=== PATIENT | female | born 1945 | race Hispanic/Latino ===

== ENCOUNTER 2018-02-13 22:30 | Emergency (ER) | payer MEDICARE, OTHER ==
[2018-02-13] MEDS ORDERED: NA CHLORIDE 0.9% 500 ML ONE (23:08)
[2018-02-13] MEDS ORDERED: LEVALBUTEROL 1.25 MG/3 ML NEB ONE (23:08)
[2018-02-14] MEDS ORDERED: AZITHROMYCIN 250 MG TAB ONE (01:59)
--- NOTE | 2018-02-14 02:05 | EDPHYS ---
Physician Documentation [facility] Name: Melinda Davis Age: 72 yrs Sex: Female : 1945 Arrival Date: 02/13/2018 Time: 22:31 Bed 19 Private MD: ED Physician Alfred Chou HPI: 02/14 02:00 This 72 yrs old Female presents to ER via Ambulatory with complaints of Cough, rn Sore Throat. 02:00 The patient or guardian reports cough. Onset: The symptoms/episode began/occurred rn yesterday. Severity of symptoms: At their worst the symptoms were mild, in the emergency department the symptoms are unchanged. It is unknown whether or not the patient has had similar symptoms in the past. Reports cough, sore throat, drainage, feels mild sob, hx of asthma, reports throat feels swollen when lays down, ok if standing or sitting, son with similar symptoms recently. . Historical: - Allergies: 02/13 22:50 No Known Allergies; lp1 - Home Meds: 22:50 Symbicort inhalation inhalation [Active]; Metoprolol Tartrate Oral [Active]; Metformin lp1 Oral [Active]; Glipizide Oral [Active]; 23:21 amlodipine oral [Active]; Hydralazine Oral [Active]; jd3 - PMHx: 22:50 Hypertension; Diabetes - NIDDM; Asthma; lp1 - PSHx: 22:50 Knee surgery; rotator cuff repair; ; lp1 - Immunization history:: Adult Immunizations up to date. - Social history:: Smoking status: Patient/guardian denies using tobacco. - Ebola Screening: : No symptoms or risks identified at this time. - Family history:: not pertinent. - Hospitalizations: : No recent hospitalization is reported. ROS: 02/14 02:00 Constitutional: Negative for fever, chills, and weight loss, Eyes: Negative for injury, rn pain, redness, and discharge, ENT: + sore throat and drainage Neck: Negative for injury, pain, and swelling, Cardiovascular: Negative for chest pain, palpitations, and edema, Respiratory: Negative for wheezing, and pleuritic chest pain, Abdomen/GI: Negative for abdominal pain, nausea, vomiting, diarrhea, and constipation, MS/Extremity: Negative for injury and deformity, Skin: Negative for injury, rash, and discoloration, Neuro: Negative for headache, weakness, numbness, tingling, and seizure. Exam: 02:00 Constitutional: This is a well developed, well nourished patient who is awake, alert, rn and in no acute distress. Head/Face: Normocephalic, atraumatic. Eyes: Pupils equal round and reactive to light, extra-ocular motions intact. Lids and lashes normal. Conjunctiva and sclera are non-icteric and not injected. Cornea within normal limits. Periorbital areas with no swelling, redness, or edema. ENT: mild pharyngeal erythema, no stridor, no exudate Neck: Trachea midline, no thyromegaly or masses palpated, and no cervical lymphadenopathy. Supple, full range of motion without nuchal rigidity, or vertebral point tenderness. No Meningismus. Cardiovascular: Regular rate and rhythm with a normal S1 and S2. No gallops, murmurs, or rubs. Normal PMI, no JVD. No pulse deficits. Respiratory: Lungs have equal breath sounds bilaterally, clear to auscultation and percussion. No rales, rhonchi or wheezes noted. No increased work of breathing, no retractions or nasal flaring. Abdomen/GI: Soft, non-tender, with normal bowel sounds. No distension or tympany. No guarding or rebound. No evidence of tenderness throughout. MS/ Extremity: Pulses equal, no cyanosis. Neurovascular intact. Full, normal range of motion. Equal circumference. Neuro: Awake and alert, GCS 15, oriented to person, place, time, and situation. Cranial nerves II-XII grossly intact. Motor strength 5/5 in all extremities. Sensory grossly intact. Cerebellar exam normal. Normal gait. Vital Signs: 02/13 22:48 BP 163 / 82; Pulse 112; Resp 20; Temp 99.5(O); Pulse Ox 97% on R/A; Weight 92.53 kg; lp1 Height 4 ft. 11 in. (149.86 cm); 23:34 BP 155 / 68; Pulse 99; Resp 18 S; Pulse Ox 96% on R/A; jd3 02/14 00:18 BP 133 / 58; Pulse 94; Resp 18 S; Pulse Ox 95% on R/A; jd3 01:03 BP 159 / 59; Pulse 94; Resp 18 S; Pulse Ox 100% on R/A; j 02: BP 149 / 63; Pulse 92; Resp 18 S; Pulse Ox 96% on R/A; d3 02/13 22:48 Body Mass Index 41.20 (92.53 kg, 149.86 cm) lp1 MDM: 02/13 22:41 Patient medically screened. rn 02/14 02:00 Differential Diagnosis: Bronchitis Influenza Upper Respiratory Infection Pharyngitis rn Viral Syndrome Pneumonia. Data reviewed: vital signs, nurses notes, lab test result(s), radiologic studies, plain films, and as a result, I will discharge patient. Counseling: I had a detailed discussion with the patient and/or guardian regarding: the historical points, exam findings, and any diagnostic results supporting the discharge/admit diagnosis, lab results, radiology results, the need for outpatient follow up, to return to the emergency department if symptoms worsen or persist or if there are any questions or concerns that arise at home. Response to treatment: the patient's symptoms have mildly improved after treatment, and as a result, I will discharge patient. Special discussion: I discussed with the patient/guardian in detail that at this point there is no indication for admission to the hospital. It is understood, however, that if the symptoms persist or worsen the patient needs to return immediately for re-evaluation. ED course: Pt improved, strep/flu neg, will dc home with z pack and pcp f/u. . 02/13 22:55 Order name: Flu; Complete Time: 01:28 rn 02/13 22:55 Order name: Strep; Complete Time: 01: rn 02/13 22:55 Order name: XRAY Chest Pa And Lat (2 Views) 02/13 23:38 Order name: Throat Culture [facility] 02/13 22:55 Order name: IV Start; Complete Time: 23:13 rn Administered Medications: 02/13 23:12 Drug: Xopenex 1.25 mg Route: Inhalation; [facility] 02/14 00:29 Follow up: Response: No adverse reaction [facility] 02/13 23:13 Drug: NS 0.9% 500 ml Route: IV; Rate: bolus; Site: right antecubital; j 02/14 00:29 Follow up: Response: No adverse reaction; IV Status: Completed infusion; IV Intake: jd3 500ml 01:09 Follow up: Response: No adverse reaction; IV Status: Completed infusion; IV Intake: jd3 500ml 02:00 Drug: Zithromax 500 mg Route: PO; jd3 02:15 Follow up: Response: No adverse reaction jd3 02:22 Drug: Tussionex Pennkinetic ER 5 ml Route: PO; jd3 02:22 Follow up: Response: Medication administered at discharge. jd3 Disposition: 02/14/18 02:04 Discharged to Home. Impression: Cough, Acute sinusitis. - Condition is Stable. - Discharge Instructions: Cough, Adult. - Prescriptions for Zithromax Z- Harpal 250 mg Oral Tablet - take 1 tablet by ORAL route as directed for 5 days Day 1 - take two (2) tablets one time. Day 2, 3, 4 , 5 take one (1) tablet once daily.; 6 tablet. - Medication Reconciliation Form, Thank You Letter, Antibiotic Education, Prescription Opioid Use form. - Follow up: Private Physician; When: As needed; Reason: Recheck today's complaints, Re-evaluation by your physician. - Problem is new. - Symptoms have improved. Signatures: Dispatcher [employer] EDMS Alfred Chou MD MD rn Pena, Laura, RN RN lp1 Keegan Alfaro RN RN jd3 Corrections: (The following items were deleted from the chart) 02:24 02:04 02/14/2018 02:04 Discharged to Home. Impression: Cough; Acute sinusitis. jd3 Condition is Stable. Forms are Medication Reconciliation Form, Thank You Letter, Antibiotic Education, Prescription Opioid Use. Follow up: Private Physician; When: As needed; Reason: Recheck today's complaints, Re-evaluation by your physician. Problem is new. Symptoms have improved. rn
--- NOTE | 2018-02-14 02:05 | ER ---
Nurse's Notes [facility] Name: Melinda Davis Age: 72 yrs Sex: Female : 1945 Arrival Date: 02/13/2018 Time: 22:31 Bed 19 Private MD: Diagnosis: Cough;Acute sinusitis Presentation: 02/13 22:47 Presenting complaint: Patient states: Cough, congestion, sore throat that began this lp1 morning, feeling worse now; Denies fever but felt chills today; states "when I lay down, I feel like I can't catch my breath. Transition of care: patient was not received from another setting of care. Onset of symptoms was February 13, 2018. Risk Assessment: Do you want to hurt yourself or someone else? Patient reports no desire to harm self or others. Initial Sepsis Screen: Does the patient meet any 2 criteria? No. Patient's initial sepsis screen is negative. Does the patient have a suspected source of infection? No. Patient's initial sepsis screen is negative. Care prior to arrival: None. 22:47 Method Of Arrival: Ambulatory lp1 22:47 Acuity: JOSE 3 lp1 Historical: - Allergies: 22:50 No Known Allergies; lp1 - Home Meds: 22:50 Symbicort inhalation inhalation [Active]; Metoprolol Tartrate Oral [Active]; Metformin lp1 Oral [Active]; Glipizide Oral [Active]; 23:21 amlodipine oral [Active]; Hydralazine Oral [Active]; jd3 - PMHx: 22:50 Hypertension; Diabetes - NIDDM; Asthma; lp1 - PSHx: 22:50 Knee surgery; rotator cuff repair; ; lp1 - Immunization history:: Adult Immunizations up to date. - Social history:: Smoking status: Patient/guardian denies using tobacco. - Ebola Screening: : No symptoms or risks identified at this time. - Family history:: not pertinent. - Hospitalizations: : No recent hospitalization is reported. Screenin:49 Abuse screen: Denies threats or abuse. Nutritional screening: No deficits noted. jd3 Tuberculosis screening: No symptoms or risk factors identified. Fall Risk Ambulatory Aid- None/Bed Rest/Nurse Assist (0 pts). Gait- Normal/Bed Rest/Wheelchair (0 pts) Mental Status- Oriented to own ability (0 pts). Total Silva Fall Scale indicates No Risk (0-24 pts). Assessment: 22:47 General: Appears uncomfortable, Behavior is calm, cooperative, appropriate for age. jd3 Pain: Complains of pain in head Quality of pain is described as aching, dull. Neuro: Level of Consciousness is awake, alert, obeys commands, Oriented to person, place, time, situation, Appropriate for age. Cardiovascular: Capillary refill < 3 seconds Patient's skin is warm and dry. Respiratory: Reports cough that is non-productive, persistent Airway is patent Respiratory effort is even, unlabored, Respiratory pattern is regular, symmetrical, Breath sounds are clear bilaterally. GI: No signs and/or symptoms were reported involving the gastrointestinal system. : No signs and/or symptoms were reported regarding the genitourinary system. EENT: Throat is reddened. Derm: Skin is intact, Skin is dry, Skin is normal, Skin temperature is warm. Musculoskeletal: Circulation, motion, and sensation intact. Range of motion: intact in all extremities. 23:34 Reassessment: Patient appears in no apparent distress at this time. Patient and/or jd3 family updated on plan of care and expected duration. Pain level reassessed. Patient is alert, oriented x 3, equal unlabored respirations, skin warm/dry/pink. 02/14 00:17 Reassessment: Patient appears in no apparent distress at this time. No changes from jd3 previously documented assessment. Patient and/or family updated on plan of care and expected duration. Pain level reassessed. Patient is alert, oriented x 3, equal unlabored respirations, skin warm/dry/pink. 01:03 Reassessment: Patient appears in no apparent distress at this time. Patient and/or jd3 family updated on plan of care and expected duration. Pain level reassessed. Patient is alert, oriented x 3, equal unlabored respirations, skin warm/dry/pink. 02:23 Reassessment: Patient appears in no apparent distress at this time. Patient and/or jd3 family updated on plan of care and expected duration. Pain level reassessed. Patient is alert, oriented x 3, equal unlabored respirations, skin warm/dry/pink. Vital Signs: 02/13 22:48 BP 163 / 82; Pulse 112; Resp 20; Temp 99.5(O); Pulse Ox 97% on R/A; Weight 92.53 kg; lp1 Height 4 ft. 11 in. (149.86 cm); 23:34 BP 155 / 68; Pulse 99; Resp 18 S; Pulse Ox 96% on R/A; jd3 02/14 00:18 BP 133 / 58; Pulse 94; Resp 18 S; Pulse Ox 95% on R/A; jd3 01:03 BP 159 / 59; Pulse 94; Resp 18 S; Pulse Ox 100% on R/A; jd3 02:23 BP 149 / 63; Pulse 92; Resp 18 S; Pulse Ox 96% on R/A; jd3 02/13 22:48 Body Mass Index 41.20 (92.53 kg, 149.86 cm) lp1 ED Course: 02/13 22:31 Patient arrived in ED. es 22:36 Keegan Alfaro, RN is Primary Nurse. jd3 22:41 Alfred Chou MD is Attending Physician. rn 22:48 Triage completed. lp1 22:48 Arm band placed on left wrist. lp1 22:49 Patient has correct armband on for positive identification. Bed in low position. Call jd3 light in reach. Side rails up X 1. Adult w/ patient. 23:13 Inserted saline lock: 20 gauge in right antecubital area, using aseptic technique. jd3 23:25 Patient moved to radiology via wheelchair. tm4 23:25 X-ray completed. Patient tolerated procedure well. tm4 23:25 Patient moved back from radiology. tm4 23:38 XRAY Chest Pa And Lat (2 Views) In Process Unspecified. EDMS 09 02:22 No provider procedures requiring assistance completed. IV discontinued, intact, jd3 bleeding controlled, No redness/swelling at site. Pressure dressing applied. Administered Medications: 02/13 23:12 Drug: Xopenex 1.25 mg Route: Inhalation; jd3 02/14 00:29 Follow up: Response: No adverse reaction jd3 02/13 23:13 Drug: NS 0.9% 500 ml Route: IV; Rate: bolus; Site: right antecubital; jd3 02/14 00:29 Follow up: Response: No adverse reaction; IV Status: Completed infusion; IV Intake: jd3 500ml 01:09 Follow up: Response: No adverse reaction; IV Status: Completed infusion; IV Intake: jd3 500ml 02:00 Drug: Zithromax 500 mg Route: PO; jd3 02:15 Follow up: Response: No adverse reaction jd3 02:22 Drug: Tussionex Pennkinetic ER 5 ml Route: PO; jd3 02:22 Follow up: Response: Medication administered at discharge. jd3 Intake: 00:29 IV: 500ml; Total: 500ml. jd3 01:09 IV: 500ml; Total: 1000ml. jd3 Outcome: 02:04 Discharge ordered by . rn 02:24 Discharged to home ambulatory, with family. jd3 02:24 Condition: stable 02:24 Discharge instructions given to patient, family, Instructed on discharge instructions, follow up and referral plans. medication usage, Demonstrated understanding of instructions, follow-up care, medications, Prescriptions given X 1. 02:24 Patient left the ED. jd3 Signatures: Dispatcher [employer] Justyna Aguilar Tracy tm4 Alfred Chou MD MD rn Pena, Laura, RN RN lp1 Keegan Alfaro RN RN jd3
[2018-02-14] MEDS ORDERED: HYDROCODONE/CHLORPHEN 5 ML/OSYR ONE (02:25)
[2018-02-14 02:28] VITALS: TEMP 99.5
[2018-02-14 02:33] VITALS: BP 149/63; O2SAT 96
--- NOTE | 2018-02-14 08:05 | RAD REPORT ---
EXAM DESCRIPTION: RAD - Chest Pa And Lat (2 Views) - 02/13/2018 11:38 pm CLINICAL HISTORY: Cough and congestion COMPARISON: October 2014 TECHNIQUE: PA and lateral views of the chest were obtained. FINDINGS: The lungs are clear. Lung markings are similar to comparison. Heart size is normal and ce ntral vasculature is within normal limits. No pleural effusion or pneumothorax seen. No acute bony finding noted. No aortic abnormality. No significant interval change. IMPRESSION: No acute cardiopulmonary process.
== END 2018-02-14 02:24 | disposition home or self-care (01) ==
LOC: ER 22:30
DX: J01.90 Acute sinusitis, unspecified (principal); I10 Essential (primary) hypertension; E11.9 Type 2 diabetes mellitus without complications; J45.909 Unspecified asthma, uncomplicated
CPT/HCPCS: 71046; 87070; 87081; 87804; 96360; 99284

== ENCOUNTER 2020-06-05 06:20 | Observation (INO) | payer MEDICARE, OTHER ==
[2020-06-03 16:21] LABS: Absolute Lymphocytes (CBC) 1.4 K/uL (0.7-4.9); Basophils % 1.1 % (0-1.3); Hematocrit 36.3 % (36.0-45.0); MPV 7.6 fL (7.6-11.3); RBC Red Blood Cell Count 4.05 M/uL (3.86-4.86)
[2020-06-03 16:29] LABS: ALT/SGPT 16 U/L (12-78); AST/SGOT 14 U/L (15-37); Albumin 3.3 g/dL (3.4-5.0); Alkaline Phosphatase 122 U/L (45-117); Amylase 93 U/L (25-115); BUN Blood Urea Nitrogen 24 mg/dL (7-18); Bicarbonate 29 mmol/L (21-32); Bilirubin Direct < 0.1 mg/dL (0-0.2); Bilirubin Total 0.4 mg/dL (0.2-1.0); Glucose Level 130 mg/dL (74-106); Lipase 194 U/L (73-393); Potassium 5.4 mmol/L (3.5-5.1); Protein, Total 8.3 g/dL (6.4-8.2); Sodium Level 139 mmol/L (136-145)
--- NOTE | 2020-06-03 16:34 | RAD REPORT ---
EXAM DESCRIPTION: RAD - Chest Pa And Lat (2 Views) - 06/03/2020 4:28 pm CLINICAL HISTORY: preop Chest pain. COMPARISON: Chest Pa And Lat (2 Views) dated 02/13/2018; CHEST PA AND LAT 2 VIEW dated 11/02/2014; [facility]EL[facility] ST PA AND LAT 2 VIEW dated 06/24/2014; CHEST PA AND LAT 2 VIEW dated 10/11/2013 FINDINGS: The lungs are clear. The heart is upper limit normal in size. No displaced fractures. IMPRESSION: No acute or concerning finding suspected.
--- NOTE | 2020-06-05 06:12 | EKG ---
Test Date: 2020-06-03 Test Time: 15:23:56 Motor Route Carrier: OLYA MEASUREMENT RESULTS: Intervals: Rate: 69 WY: 148 QRSD: 90 QT: 390 QTc: 417 [place]: P: 55 WY: 148 QRS: 74 T: 78 INTERPRETIVE STATEMENTS: Sinus rhythm with premature atrial complexes Otherwise normal ECG Compared to ECG 11/02/2014 15:26:18 Atrial premature complex(es) now present Electronically Signed On 06-05-20 06:09:18 [employer] by Kimani Senior
--- OUTSIDE RECORDS SUMMARY | 2020-06-05 06:21 | XMS REPORT | Continuity of Care Document ---
:1945 Author Organization [facility] t Address [address] [place] [address] Care Team Providers Name Role Phone Unavailable Unavailable Unavailable Problems This patient has no known problems. Allergies, Adverse Reactions, Alerts This patient has no known allergies or adverse reactions. Medications Ordered Filled Start Stop Current Ordering Indication Dosage Frequency Signature Comments Components Source Medication Medication Date Date Medication? Clinician (SIG) Name Name Alendronate Alendronate Yes [facility] not [facility] Sodium Sodium [facility] defined [facility] Losartan Losartan Yes [facility] Potassium Potassium [facility] GlipiZIDE GlipiZIDE Yes Ross not [facility] Norris defined [facility] Atorvastati Atorvastati Yes Ross not [facility] n Calcium n Calcium [facility] defined [facility] Metformin Metformin Yes Ross not [facility] HCl HCl [facility] defined [facility] Metoprolol Metoprolol Yes [facility] not [facility] Tartrate Tartrate [facility] defined [facility] Procedures This patient has no known procedures. Encounters Start End Encounter Admission Attending Care Care Encounter Source Date/Time Date/Time Type Type Clinicians Facility Department ID 2020-02-27 2020-02-27 Outpatient [facility] [id number] [facility] 2019-01-27 2019-01-27 [facility] [id number] [facility] 08[facility] Results This patient has no known results.
[2020-06-05] MEDS: NA CHLORIDE 0.9% 1,000 ML ONE ×5 (06:50→08:38)
[2020-06-05] MEDS ORDERED: CEFOXITIN/SWI 1gm 1 GM/10 ML SYR ONE ×2 (06:56→12:33)
[2020-06-05] MEDS ORDERED: MIDAZOLAM HCL 2 MG/2 ML INJ ONE (07:17)
[2020-06-05] MEDS ORDERED: propofoL 200 MG/20 ML VIAL IV ONE (07:17)
[2020-06-05] MEDS ORDERED: dexAMETHasone 10 MG/ML VIAL ONE (07:17)
[2020-06-05] MEDS ORDERED: FENTANYL CITR 100 MCG/2 ML ONE (07:17)
[2020-06-05] MEDS ORDERED: ROCURONIUM 50 MG/5 ML VIAL IV ONE (07:18)
[2020-06-05] MEDS ORDERED: ONDANSETRON 4 MG/2 ML VIAL ONE (07:18)
[2020-06-05] MEDS ORDERED: LIDOCAINE 1% MPF 2 ML AMPULE ONE (07:18)
[2020-06-05] MEDS ORDERED: EPHEDRINE SULF 50 MG/ML VIAL ONE (08:15)
[2020-06-05] MEDS ORDERED: GLYCOPYRROLATE 0.2 MG/ML SYR ONE (08:20)
[2020-06-05] MEDS ORDERED: SODIUM CHLORIDE 0.9% 10ML INJ IV PRN (08:26)
[2020-06-05] MEDS ORDERED: ATROPINE SULF 1 MG/10 ML SYR IV ONE (08:26)
[2020-06-05] MEDS ORDERED: ONDANSETRON 4 MG/2 ML VIAL IV PRN (08:26)
--- NOTE | 2020-06-05 08:26 | P.BOP ---
Preoperative diagnosis: biliary dyskinesia, RUQ abd pain Postoperative diagnosis: same, cholecystitis Primary procedure: Laparoscopic cholecystectomy Estimated blood loss: <10cc Specimen: gb Findings: see dictation Anesthesia: General Complications: None Transferred to: Recovery Room Condition: Good
[2020-06-05] MEDS ORDERED: KETOROLAC 30 MG/ML INJ ONE (08:33)
[2020-06-05] MEDS: NA CHLORIDE 0.9% 1,000 ML IV SCH ×2 (09:00→23:16)
[2020-06-05] MEDS: PANTOPRAZOLE 40 MG INJ IVP SCH (09:00)
[2020-06-05] MEDS ORDERED: HYDROCODONE/APAP 5/325 MG TAB PO PRN (09:18)
[2020-06-05] MEDS ORDERED: MORPHINE 2 MG/ML SYR IV PRN (09:19)
--- NOTE | 2020-06-05 10:15 | OP ---
Date of Procedure: 06/05/2020 Surgeon: Abimael Sharma MD Postoperative Diagnoses: Biliary dyskinesia, right upper quadrant abdominal pain. Postoperative Diagnoses: Biliary dyskinesia, right upper quadrant abdominal pain, acute cholecystiti s. Procedure: Laparoscopic cholecystectomy. Specimen: Gallbladder. Anesthesia: General plus local. Findings: Inflammation of the gallbladder plus above. Also during the procedure as per Anesthesia, they believe the patient has a vasovagal with a short episode of hypotension. Anesthesia: General plus local. Indications: This is a case of a 74-year-old patient, who comes to us with above diagnosis. Patient wants surgery to be done. She understands the benefits, alternatives, and risks of laparoscopic, po ssible open cholecystectomy, which include, but not limited to infection, bleeding, damage to adjacen t structures, anesthesia complication, recurrence, UT, and . She also understands this may not relieve the symptoms. She might need more than 1 surgical intervention. She understands the situati on of the country with COVID cases, but also she feels that she has been waiting a long enough and sh e want to improve and get better, continue with her life, and go back to normal duties and have jose miguel r quality of life because this pain holds her back. surgery. She has been trying to even control her diet, but has not improved yet. Description Of Procedure: Patient was brought to the operating room, placed in supine position. Ane sthesia was done without complication. Abdominal area was prepped and draped in a sterile fashion. Marcaine 0.5% was injected for local anesthetic followed by sharp incision of the skin in the infraum bilical region. Incision was carried down to fascia, which was opened under direct vision. Peritone um was encountered, opened under direct vision. Vicryl #1 placed inside the fascia. Nicanor trocar w as carefully introduced. No bleeding was obtained. I placed 3 more trocars 5 mm each one of them in the epigastric right upper quadrant area under direct visualization. When we insufflated the area, the Anesthesia felt that the heart rate dropped and they asked me to relive the abdomen and it improv ed immediately. They believed vasovagal, everything else looked intact. The gave me the green light to continue and the procedure was done. I placed a grasper in the fundus of the gallbladder and ano ther grasper in the infundibulum retracting the gallbladder in the inferolateral fashion exposing the triangle of Calot, obtaining critical view of safety. Cystic duct and cystic artery were clearly is olated freed circumferentially and a connection between those and the gallbladder was clearly identif ied. I proceeded to ligate those by using at least 3 clips proximal, 1 clip distal, and ligation in the middle. Same was done with the cystic artery. A small branch of the cystic artery was also liga carlos using the same technique. Hepatic arteries and common bile duct were protected at all times. Th e gallbladder was removed from liver using Bovie cauterizer and removed from abdominal cavity using E ndoCatch through the umbilical incision. Heart rate continued steady and normal. At that moment, th en I proceeded to check the area once again after irrigation and suction. There were intact marcelino and no bleeding. No bile leak. No bleeding. At that moment, I proceeded to remove the trocars unde r direct vision. Deflated the pneumoperitoneum. Closed the fascia with #1 Vicryl. Irrigated the hernandez bcutaneous tissue, closed that with 3-0 chromic and the skin with 3-0 chromic in a subcuticular fashi on. Sponge count and instrument counts correct. Vital signs are stable. The patient was sent to re covery in stable condition. Due to that small episode of bradycardia, I believe it is safer to keep the patient overnight on telemetry. Anesthesia will do the workup for the bradycardia, although they believe it is just a decrease in heart rate. MONICA/NOLVIA Voice ID: [id number] Report ID: [id number]
[2020-06-05] MEDS: CEFOXITIN/SWI 1gm 1 GM/10 ML SYR IV SCH ×3 (12:00→23:16)
[2020-06-05 13:22] VITALS: BMI 39.7
[2020-06-05] MEDS ORDERED: D50W 25 GM/50 ML SYRINGE IV PRN (14:36)
[2020-06-05] MEDS ORDERED: GLUCAGON 1 MG/VIAL IM PRN (14:36)
--- NOTE | 2020-06-05 14:44 | P.CNS ---
Date of Consult: 06/05/20 Reason for Consult: Medical management Requesting Physician: Abimael Sharma Chief Complaint: Bradycardia History of Present Illness: 74-year-old woman with a history of hypertension and diabetes had and elective laparoscopic cholecystectomy for biliary dyskinesia. Patient is reported to have developed bradycardia in the immediate postop period. She is therefore being observed overnight with cardiac monitoring. Hospitalist service is consulted to assist with management of medical problems which include hypertension and diabetes. Patient at the moment denies any complain. Her heart rate has been stable since transfer from the recovery room. Allergies No Known Drug Allergies Allergy (Verified 06/03/20 14:52) Unknown Home Medications: Aspirin [Aspirin EC] 81 mg PO DAILY 12/25/14 Atorvastatin Calcium 40 mg PO BEDTIME 06/03/20 Carvedilol [Coreg] 0.5 tab PO BID 06/03/20 Glipizide [Glipizide ER] 5 mg PO BID 06/03/20 Losartan Potassium 100 mg PO DAILY 06/03/20 Metformin ER [Glucophage ER] 500 mg PO BID 06/03/20 Spironolactone 25 mg PO DAILY 06/03/20 - Past Medical/Surgical History Diabetic: Yes -: Right Cataract -: Hypertension -: DM -: Bilateral knee replacement -: rt rotator cuff repair 1999 -: carpal tunnel repair both wrists 1991 -: c section 1979 -: heel spurs 20 yrs ago - Family History Brother Medical History:  Notes: mother was very healthy, did not know fathers health status-left when she was 3 yrs. brother at old age over 70-was very healthy - Social History Smoking Status: Never smoker Alcohol use: No CD- Drugs: No Caffeine use: Yes Place of Residence: Home Review of Systems 10-point ROS is otherwise unremarkable Physical Examination Temp Pulse Resp BP Pulse Ox 96.3 F L 85 16 135/58 L 06/05/20 12:10 06/05/20 12:10 06/05/20 12:10 06/05/20 12:30 General: Alert, In no apparent distress, Oriented x3 HEENT: Atraumatic, Normocephalic, PERRLA, Mucous membr. moist/pink, EOMI, Sclerae nonicteric Neck: Supple, JVD not distended Respiratory: Clear to auscultation bilaterally, Normal air movement Cardiovascular: No edema, Regular rate/rhythm, Normal S1 S2, No murmurs Capillary refill: <2 Seconds Gastrointestinal: Normal bowel sounds, Soft and benign, Non-distended, No tenderness Musculoskeletal: No swelling, No tenderness Integumentary: No rashes, No erythema Neurological: Normal speech, Normal strength at 5/5 x4 extr, Cranial nerves 3-12 intact - Problems (1) Bradycardia Current Visit: Yes Status: Acute (2) Diabetes mellitus Onset Date: 12/26/14 Current Visit: No Status: Acute (3) High blood pressure Onset Date: 12/26/14 Current Visit: No Status: Acute Conclusions/Impression: Resume losartan. Hold Coreg due to bradycardia. Monitor blood pressure. Mild insulin sliding scale. Hold metformin and glipizide. Patient started on clear liquid diet.
[2020-06-05] MEDS: INSULIN -REGULAR HUMAN 50 UNIT/0.5 ML ML SQ SCH ×2 (18:19→21:29)
[2020-06-05] MEDS ORDERED: ATORVASTATIN 40 MG TAB PO SCH (21:00)
[2020-06-06 04:32] LABS: Absolute Lymphocytes (CBC) 0.7 K/uL (0.7-4.9); Basophils % 0.1 % (0-1.3); Hematocrit 33.8 % (36.0-45.0); Lymphocytes % 5.3 % (15.3-44.8); MPV 7.2 fL (7.6-11.3); RBC Red Blood Cell Count 3.79 M/uL (3.86-4.86)
[2020-06-06 05:17] LABS: Potassium 5.8 mmol/L (3.5-5.1)
[2020-06-06 05:35] LABS: Blood Morphology Comment NOT SEEN (NOT SEEN); Platelet Estimate ADEQ
[2020-06-06] MEDS ORDERED: ALBUTEROL 2.5 MG/3 ML NEB SOL NEB ONE (05:35)
[2020-06-06] MEDS ORDERED: D50W 25 GM/50 ML SYRINGE IV ONE (05:35)
[2020-06-06] MEDS ORDERED: INSULIN -REGULAR HUMAN 50 UNIT/0.5 ML ML IV ONE (05:36)
[2020-06-06] MEDS ORDERED: D50W 50 ML IV ONE (06:16)
[2020-06-06] MEDS: INSULIN -REGULAR HUMAN 50 UNIT/0.5 ML ML SQ SCH ×3 (07:30→16:30)
[2020-06-06] MEDS: PANTOPRAZOLE 40 MG INJ IVP SCH (09:00)
[2020-06-06] MEDS ORDERED: SPIRONOLACTONE 25 MG TABLET PO SCH (09:00)
[2020-06-06] MEDS ORDERED: LOSARTAN POTASSIUM 50 MG TABLET PO SCH (09:00)
[2020-06-06 09:22] VITALS: O2SAT 96
[2020-06-06] MEDS ORDERED: SOD POLYSTYREN SUL 15 GM/60 ML UCUP PO ONE (11:30)
[2020-06-06 14:53] VITALS: BP 153/66; TEMP 97
--- NOTE | 2020-06-06 16:21 | P.PN ---
Subjective Date of Service: 06/06/20 Chief Complaint: Bradycardia Patient has no complain today. Noted to have hyperkalemia. She has been on spironolactone and losartan. Indication for the spironolactone is not clear. Physical Examination - Vital Signs Temperature: 97 F Blood Pressure: 153/66 Pulse: 64 Respirations: 20 Pulse Ox (%): 97 - Physical Exam General: Alert, In no apparent distress, Oriented x3 Neck: Supple Respiratory: Clear to auscultation bilaterally, Normal air movement Cardiovascular: No edema, Regular rate/rhythm, Normal S1 S2 Gastrointestinal: Normal bowel sounds, Soft and benign, Non-distended Musculoskeletal: No swelling, No tenderness Integumentary: No rashes Neurological: Normal speech, Normal strength at 5/5 x4 extr - Studies Laboratory Data (last 24 hrs) 06/06/20 09:51: Potassium 5.4 H 06/06/20 03:58: Sodium 139, Potassium 5.8 H*, BUN 24 H, Creatinine 1.24, Glucose 167 H 06/06/20 03:58: WBC 13.8 H D, Hgb 11.0 L, Hct 33.8 L, Plt Count 282 Assessment And Plan - Current Problems (Diagnosis) (1) Bradycardia Current Visit: Yes Status: Acute (2) Diabetes mellitus Onset Date: 12/26/14 Current Visit: No Status: Acute (3) High blood pressure Onset Date: 12/26/14 Current Visit: No Status: Acute (4) Hyperkalemia Current Visit: Yes Status: Acute - Plan Hyperkalemia likely related to ARB and Aldactone. Will discontinue Aldactone. Patient given Kayexalate to treat the hyperkalemia. Patient also hydrated with IV fluid. She has no complain. Repeat potassium level 4 hours from Kayexalate administration. Clinically stable.
[2020-06-06] MEDS: NA CHLORIDE 0.9% 1,000 ML IV SCH (18:00)
--- NOTE | 2020-06-06 18:24 | DS ---
Diagnoses: Acute cholecystitis, right upper quadrant abdominal pain, cardiac arrhythmias, diabetes, biliary dyskinesia. Procedure: Laparoscopic cholecystectomy. Disposition: Home. Activity: As tolerated. No heavy lifting. Plan: Follow up in my office in 1 week. Call for appointment at [phone]. Physical Examination: General: The patient is awake, alert, no distress. HEENT: Pupils equal, reactive. Anicteric. Neck: Supple. Chest: Clear. Abdomen: Soft and depressible. Intact surgical site. Extremities: Good capillary refill. Hospital Course: The patient was kept overnight for pain control also. During the surgery, she has some cardiac arrhythmias. Admitted to the hospital, consulted hospitalist. They are controlling her glucose and heart has not been an issue, so we have a clearance from Internal Medicine. We are zarina g to send the patient home and then follow up in my office in a week and advised her to followup with her soil tester and primary doctor. MONICA/NOLVIA Voice ID: [id number] Report ID: [id number]
== END 2020-06-06 19:00 | disposition home or self-care (01) ==
LOC: OR 06:20 → 2ND 12:28
PROVIDERS: ADMIT Surgery; ATTEND Surgery
PROC: 0FT44ZZ Resection of Gallbladder, Percutaneous Endoscopic Approach (ICD-10-PCS; principal; 2020-06-05 07:30)
DX: K80.12 Calculus of gallbladder with acute and chronic cholecystitis without obstruction (principal); K82.8 Other specified diseases of gallbladder; E11.9 Type 2 diabetes mellitus without complications; R00.1 Bradycardia, unspecified; E87.5 Hyperkalemia; Z20.822 Contact with and (suspected) exposure to COVID-19; I10 Essential (primary) hypertension; Z96.653 Presence of artificial knee joint, bilateral
CPT/HCPCS: 93005; 85025 ×2; 80048 ×2; 36415 ×2; 82150; 84132 ×2; 82947 ×9; 80076; 88304; 83690; 71046; 97116; 97161; 94010; 47562; U0002; J2704; J2250; J3010; J1100; J2001; J7030 ×3; J2405; G0378 ×3

== ENCOUNTER 2021-09-13 15:00 | Emergency (ER) | payer OTHER ==
--- OUTSIDE RECORDS SUMMARY | 2021-09-13 15:03 | XMS REPORT | Continuity of Care Document ---
:1945 Author Organization [facility] t Address [address] [place] [address] Care Team Providers Name Role Phone Judie Zuniga Attending Clinician Unavailable Ige-Odunuga_J_AH Attending Clinician Unavailable Ige-Odunuga_J_AH Admitting Clinician Unavailable Payers Payer Name Policy Type Policy Number Effective Date Expiration Date [facility] [id number] 2020 (MEDICARE 00:00:00 REPLACEMENT HMO) [employer] [place] - [id number] [employer] (MEDICARE REPLACEMENT/[employer] GE - HMO) Problems This patient has no known problems. [...] Date/Time Type Type Clinicians Facility Department ID 2021-06-18 [facility] Julio C [id number] 2021-06-18 Outpatient Zuniga, STLMLC [facility] [id number] [facility] 13[facility]44:33 Julio C [id number] [facility] 2021-06-18 Outpatient Zuniga, STLMLC [facility] [id number] [facility] 12:54:40 Julio C [id number] [facility] 2021-06-18 [facility] 11:51:18 Julio C [id number] [facility] 2021-06-18 Out[facility] 11:50:09 Julio C [id number] [facility] 2021-01-31 2021-01-31 Outpatient DMG [facility] [id number] [facility] 08:00:00 08:00:[facility] 2021-01-21 2021-01-21 Outpatient [facility]LMLC [facility] [id number] [facility] 2020-11-07 2020-11-07 Outpatient [facility] [id number] [facility] 2020-09-26 2020-09-26 Outpatient [facility] [id number] [facility] 2020-02-27 2020-02-27 Outpatient [facility] [id number] [facility] 2019-07-12 2019-07-12 Outpatient Ige-Odunuga VFP VFP [id number] [facility] 07:12:00 07:12:00 _J_AH [id number] [facility] 2019-07-12 2019-07-12 Outpatient Ige-Odunuga VFP VFP [id number] [facility] 07:12:00 07:12:00 _J_AH [id number] Family Practic e 2019-01-27 2019-01-27 Outpatient Claribel Koch [id number] [facility] 08:00:00 08:00:00 [facility] ent Clinics Results This patient has no known results.
[2021-09-13] MEDS ORDERED: LEVALBUTEROL 1.25 MG/3 ML NEB ONE (16:23)
[2021-09-13] MEDS ORDERED: predniSONE 20 MG TAB ONE (16:23)
--- NOTE | 2021-09-13 18:51 | EDPHYS ---
Physician Documentation [facility] Name: Melinda Davis Age: 75 yrs Sex: Female : 1945 Arrival Date: 09/13/2021 Time: 15:03 Bed 15 Private MD: ED Physician Yang De Oliveira HPI: 09/13 16:04 This 75 yrs old Female presents to ER via Ambulatory with complaints of Asthma jmm Exacerbation. 16:04 Onset: The symptoms/episode began/occurred gradually, 2 day(s) ago. Modifying factors: jmm The symptoms are alleviated by nothing, the symptoms are aggravated by nothing. Associated signs and symptoms: Pertinent negatives: chest pain, fever, vomiting. The patient has experienced similar episodes in the past. Historical: - Allergies: 15:19 No Known Allergies; vg1 - Home Meds: 15:19 Glipizide Oral [Active]; Hydralazine Oral [Active]; Metformin Oral [Active]; Symbicort vg1 inhalation [Active]; - PMHx: 15:19 Asthma; Diabetes - NIDDM; Hypertension; vg1 - Immunization history:: Client reports having NOT received the Covid vaccine. - Social history:: Smoking status: Patient denies any tobacco usage or history of. ROS: 16:04 Constitutional: Negative for fever, chills, and weight loss, Cardiovascular: Negative jmm for chest pain, palpitations, and edema. 16:04 Respiratory: Positive for cough, wheezing. 16:04 All other systems are negative. Exam: 16:04 Constitutional: This is a well developed, well nourished patient who is awake, alert, jmm and in no acute distress. Head/Face: atraumatic. Eyes: EOMI, no conjunctival erythema appreciated ENT: Moist Mucus Membranes Neck: Trachea midline, Supple Chest/axilla: Normal chest wall appearance and motion. Cardiovascular: Regular rate and rhythm. No edema appreciated 16:04 Back: Normal ROM Skin: General appearance color normal MS/ Extremity: Moves all extremities, no obvious deformities appreciated, no edema noted to the lower extremities Neuro: Awake and alert Psych: Behavior is normal, Mood is normal, Patient is cooperative and pleasant 16:04 Respiratory: mild respiratory distress is noted, Respirations: normal, Breath sounds: wheezing: that is moderate, is heard diffusely. Vital Signs: 15:14 BP 192 / 73; Pulse 69; Resp 18; Temp 99.0(TE); Pulse Ox 97% on R/A; Weight 88.45 kg; vg1 Height 4 ft. 11 in. (149.86 cm); Pain 0/10; 16:45 BP 171 / 78; Pulse 62; Resp 18; Pulse Ox 98% on Nebulizer Mask; ph 18:00 BP 169 / 72; Pulse 64; Resp 18; Temp 98.2; Pulse Ox 97% on R/A; ph 15:14 Body Mass Index 39.38 (88.45 kg, 149.86 cm) vg1 MDM: 16:04 Patient medically screened. [facility] 18:49 Data reviewed: vital signs, nurses notes. [facility] 18:49 Counseling: I had a detailed discussion with the patient and/or guardian regarding: the [facility] historical points, exam findings, and any diagnostic results supporting the discharge/admit diagnosis, the need for outpatient follow up, to return to the emergency department if symptoms worsen or persist or if there are any questions or concerns that arise at home. ED course: Increased bs, and decreased wheezing on reevaluation. Patient is alert and non toxic in appearance in the ED. No resp distress on discharge. . Administered Medications: 16:44 Drug: predniSONE 60 mg Route: PO; ph 17:00 Follow up: Response: No adverse reaction ph 16:44 Drug: Xopenex (levalbuterol) (3) 1.25 mg Route: Inhalation; ph 17:00 Follow up: Response: No adverse reaction ph Disposition Summary: 09/13/21 18:50 Discharge Ordered Location: Home [facility] Condition: Stable [facility] Diagnosis - Unspecified asthma with (acute) exacerbation [facility] Followup: [facility] - With: Private Physician - When: 2 - 3 days - Reason: Recheck today's complaints, Continuance of care, Re-evaluation by your physician Discharge Instructions: - Discharge Summary Sheet [facility] - Asthma, Adult [facility] Forms: - Medication Reconciliation Form [facility] - Thank You Letter [facility] - Antibiotic Education [facility] - Prescription Opioid Use [facility] Prescriptions: - Prednisone 20 mg Oral Tablet - take 3 tablets by ORAL route once daily for 5 days; 15 tablet; Refills: 0, [facility] Product Selection Permitted Signatures: Kurtis Ferrera PA PA jmm Hall, Patricia, RN RN ph Neda Davis, RN RN vg1
--- NOTE | 2021-09-13 18:51 | ER ---
Nurse's Notes [facility] Name: Melinda Davis Age: 75 yrs Sex: Female : 1945 Arrival Date: 09/13/2021 Time: 15:03 Bed 15 Private MD: Diagnosis: Unspecified asthma with (acute) exacerbation Presentation: 09/13 15:14 Chief complaint: Patient states: coughing, nasal drainage, difficulty breathing and vg1 sneezing x 1 week; states was prescribed Azelastine and an inhaler but nothing is helping with symptoms. Pt also states is unable to see PCP and is needing a refill on BP medications. Coronavirus screen: Vaccine status: Patient reports being unvaccinated. Client denies travel out of the [place] in the last 14 days. Client presents with at least one sign or symptom that may indicate coronavirus-19. Standard/surgical mask placed on the client. Ebola Screen: Patient denies exposure to infectious person. Patient denies travel to an Ebola-affected area in the 21 days before illness onset. Initial Sepsis Screen: Does the patient meet any 2 criteria? No. Patient's initial sepsis screen is negative. Does the patient have a suspected source of infection? No. Patient's initial sepsis screen is negative. Risk Assessment: Do you want to hurt yourself or someone else? Patient reports no desire to harm self or others. Onset of symptoms was September 08, 2021. 15:14 Method Of Arrival: Ambulatory vg1 15:14 Acuity: JOSE 3 vg1 Triage Assessment: 15:19 General: Appears comfortable, Behavior is calm, cooperative. Pain: Denies pain. vg1 Respiratory: Airway is patent Respiratory effort is even, unlabored. Historical: - Allergies: 15:19 No Known Allergies; vg1 - Home Meds: 15:19 Glipizide Oral [Active]; Hydralazine Oral [Active]; Metformin Oral [Active]; Symbicort vg1 inhalation [Active]; - PMHx: 15:19 Asthma; Diabetes - NIDDM; Hypertension; vg1 - Immunization history:: Client reports having NOT received the Covid vaccine. - Social history:: Smoking status: Patient denies any tobacco usage or history of. Screenin:54 Abuse screen: Denies threats or abuse. Nutritional screening: No deficits noted. ll1 Tuberculosis screening: No symptoms or risk factors identified. 16:46 Fall Risk None identified. ph Assessment: 15:54 Reassessment: No changes from previously documented assessment. Patient and/or family ll1 updated on plan of care and expected duration. Pain level reassessed. Patient is alert, oriented x 3, equal unlabored respirations, skin warm/dry/pink. 16:45 General: Appears in no apparent distress. comfortable, Behavior is calm, cooperative, ph appropriate for age, Denies fever, feeling ill. Pain: Denies pain. Neuro: Level of Consciousness is awake, alert, obeys commands, Oriented to person, place, time, situation. Respiratory: Reports shortness of breath at rest cough that is non-productive, Airway is patent Respiratory effort is even, unlabored. GI: No signs and/or symptoms were reported involving the gastrointestinal system. EENT: Reports nasal congestion nasal discharge that is watery. Derm: Skin is intact, Skin is pink, warm \T\ dry. Musculoskeletal: Circulation, motion, and sensation intact. Range of motion: intact in all extremities. 18:00 Reassessment: Patient appears in no apparent distress at this time. Patient and/or ph family updated on plan of care and expected duration. Pain level reassessed. Patient is alert, oriented x 3, equal unlabored respirations, skin warm/dry/pink. Patient states symptoms have improved. Vital Signs: 15:14 BP 192 / 73; Pulse 69; Resp 18; Temp 99.0(TE); Pulse Ox 97% on R/A; Weight 88.45 kg; vg1 Height 4 ft. 11 in. (149.86 cm); Pain 0/10; 16:45 BP 171 / 78; Pulse 62; Resp 18; Pulse Ox 98% on Nebulizer Mask; ph 18:00 BP 169 / 72; Pulse 64; Resp 18; Temp 98.2; Pulse Ox 97% on R/A; ph 15:14 Body Mass Index 39.38 (88.45 kg, 149.86 cm) vg1 ED Course: 15:03 Patient arrived in ED. rg4 15:10 Kurtis Ferrera PA is PHCP. jmm 15:10 Yang De Oliveira MD is Attending Physician. jm 15:19 Triage completed. vg1 15:19 Arm band placed on Patient placed in waiting room. vg1 15:53 Shane Posey, RN is Primary Nurse. ll1 15:54 Patient placed in an exam room, on a stretcher. ll1 15:54 Patient has correct armband on for positive identification. Bed in low position. Call 1 light in reach. Side rails up X 1. Pulse ox on. NIBP on. 16:05 Kourtney Eldridge, RN is Primary Nurse. ph 19:15 No provider procedures requiring assistance completed. Patient did not have IV access ph during this emergency room visit. Administered Medications: 16:44 Drug: predniSONE 60 mg Route: PO; ph 17:00 Follow up: Response: No adverse reaction ph 16:44 Drug: Xopenex (levalbuterol) (3) 1.25 mg Route: Inhalation; ph 17:00 Follow up: Response: No adverse reaction ph Outcome: 18:50 Discharge ordered by . [facility] 19:21 Patient left the ED. ph 19:21 Discharged to home ambulatory, with family. ph 19:21 Condition: good 19:21 Discharge instructions given to patient, Instructed on discharge instructions, follow up and referral plans. medication usage, Demonstrated understanding of instructions, follow-up care, medications, Prescriptions given X 1. Signatures: Kurtis Ferrera PA PA jmm Hall, Patricia, RN RN Paola Davis 4 Neda Davis RN RN 1 Shane Posey, RN RN 1
[2021-09-13 19:37] VITALS: TEMP 99
[2021-09-13 19:38] VITALS: BP 171/78; O2SAT 98
== END 2021-09-13 19:21 | disposition home or self-care (01) ==
LOC: ER 15:00
DX: J45.901 Unspecified asthma with (acute) exacerbation (principal); E11.9 Type 2 diabetes mellitus without complications; I10 Essential (primary) hypertension
CPT/HCPCS: 99284; J7512